=== PATIENT | female | born 1965 | race Caucasian/White ===

== ENCOUNTER → 2017-02-03 | Outpatient (CLI) | payer OTHER ==
[~2017-02-03] MED LIST: ACET-24 PO; ASPEC325 PO; CALC500C70 PO; CLB100 PO; FRRG PO; LISI-729 PO; MELO15TA4 PO; MORP-157 PO; MULT-190 PO; ONDA4TAB65 PO; RXC5 PO; ULT50X PO
== END | disposition home or self-care (01) ==
LOC: C.PAPS 16:13
PROVIDERS: ATTEND Obstetrics & Gynecology
DX: Z12.4 Encounter for screening for malignant neoplasm of cervix (principal); R87.616 Satisfactory cervical smear but lacking transformation zone; N88.0 Leukoplakia of cervix uteri

== ENCOUNTER → 2017-02-14 | Outpatient (CLI) | payer OTHER ==
[2017-02-14 14:46] LABS: ALT/SGPT 21 U/L (12-78); BLOOD UREA NITROGEN 10 mg/dl (7-18); BUN/CREATININE RATIO 11.1 (10-20); CARBON DIOXIDE 29 mmol/L (21-32); CHLORIDE 107 mmol/L (98-107); CHOLESTEROL 176 mg/dl (0-200); CREATININE 0.92 mg/dl (0.60-1.20); GLUCOSE 91 mg/dl (70-99); POTASSIUM 3.9 mmol/L (3.5-5.1); SODIUM 141 mmol/L (136-145); TRIGLYCERIDES 78 mg/dl (0-150); VERY LOW DENSITY LIPOPROT CALC 16 mg/dl
[2017-02-14 14:55] LABS: ALB/GLOB RATIO 1.1 (0.9-2); ALKALINE PHOSPHATASE 48 U/L (45-117); AST/SGOT 14 U/L (15-37); CHOLESTEROL/HDL RATIO 3.3; HDL CHOLESTEROL 53 mg/dl; LDL CHOLESTEROL CALCULATED 107 mg/dl
== END | disposition home or self-care (01) ==
LOC: C.LAB 10:44
PROVIDERS: ATTEND Family Medicine
DX: Z00.00 Encounter for general adult medical examination without abnormal findings (principal); Z13.220 Encounter for screening for lipoid disorders

== ENCOUNTER 2017-04-14 09:55 | Inpatient (IN) | payer OTHER ==
--- NOTE | 2017-03-21 14:01 | PAT Medication Instructions ---
Service Date Mar 21, 2017. Current Home Medication List Calcium/Vitamin D (Os-Tramaine 500 Plus D), 1 TAB PO QAM Celecoxib (Celebrex), 2 CAP PO QAM Lisinopril (Prinivil), 2.5 MG PO QAM Ocuvite Preservision (Ocuvite Preservision), 1 TAB PO QAM Medication Instructions For Your Scheduled Surgery - Check with surgeon for instructions: Celecoxib (Celebrex), 2 CAP PO QAM - Hold the following medications the morning of surgery: Calcium/Vitamin D (Os-Tramaine 500 Plus D), 1 TAB PO QAM Lisinopril (Prinivil), 2.5 MG PO QAM Ocuvite Preservision (Ocuvite Preservision), 1 TAB PO QAM If you have any questions please call us at [phone] or [phone] or [phone]
--- NOTE | 2017-03-21 14:37 | DIAGNOSTIC IMAGING REPORT ---
CHEST PREADMISSION(PA/LAT) CLINICAL HISTORY: 51 years-old Female presenting with preoperative assessment. TECHNIQUE: PA and lateral views of the chest were obtained. COMPARISON: None. FINDINGS: Cardiomediastinal silhouette normal. Lungs and pleural spaces clear. Osseous structures normal. Upper abdomen normal. IMPRESSION: 1. No acute cardiopulmonary disease. Electronically signed by: Gianni Vallejo M.D. 03/21/2017 2:35 PM Dictated Date/Time: 03/21/2017 2:35 PM
[2017-03-21 14:42] LABS: BASO % 0.4 %; BASO ABS # 0.03 K/uL (0-0.2); COMPLETE YES; EOS % 3.6 %; HEMATOCRIT 36.2 % (37-47); IG% 0.1 %; LYMPH % 29.5 %; LYMPH ABS # 2.05 K/uL (1.2-3.4); MEAN CELL VOLUME 90.7 fL (80-100); MEAN CORPUSCULAR HEMOGLOBIN 31.6 pg (25-34); MEAN CORPUSCULAR HGB CONC 34.8 g/dl (32-36); MEAN PLATELET VOLUME 10.9 fL (7.4-10.4); MONO % 9.9 %; NEUT % 56.5 %; PLATELET COUNT 238 K/uL (130-400); RED BLOOD COUNT 3.99 M/uL (4.2-5.4); WHITE BLOOD COUNT 6.95 K/uL (4.8-10.8)
[2017-03-21 15:00] LABS: PARTIAL THROMBOPLASTIN RATIO 1.3; PROTHROMBIN TIME (PATIENT) 10.4 SECONDS (9.0-12.0)
--- NOTE | 2017-04-07 23:17 | HISTORY & PHYSICAL EXAMINATION ---
DATE OF ADMISSION: 04/14/2017 CHIEF COMPLAINT: Bilateral knee pain, right side greater than left. 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 She has a long history of bilateral knee pain and discomfort, right side greater than left. She has been followed by my partner Dr. Rogel for the past 10 years. She was initially treated with injections which helped initially but became less successful over time. Her pain and discomfort has gotten significantly worse over the past 2 years. She describes chronic pain. This is globally in her knee. She cannot go out and walk any significant degree or shop. Walking tolerance is less than half a mile. 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 She would like to consider surgical treatment. PAST MEDICAL HISTORY: 1. Arthritis. 2. Hypertension. PREVIOUS SURGICAL HISTORY: Includes: 1. x2. 2. Breast reduction. 3. Laparoscopy. 4. Sparkill teeth surgery. 5. Tonsillectomy. ALLERGIES: None. CURRENT MEDICINES: 1. Lisinopril 2.5 mg. 2. Celebrex 200 mg a day. SOCIAL HISTORY: A 51-year-old female. She is . She works as an [employer] nurse. Does not smoke. FAMILY HISTORY: Noncontributory. REVIEW OF SYSTEMS: Negative for diabetes, neurologic problems, vascular problems, bleeding disorders. Denies any chest pain, no shortness of breath. No history of DVT or PE. PHYSICAL EXAMINATION: GENERAL: Reveals a healthy, pleasant middle-aged female. She looks to be in excellent health. HEENT: Benign. NECK: Supple. No lymphadenopathy. LUNGS: Clear to auscultation. HEART: Regular rate and rhythm. ABDOMEN: Soft, nontender, nondistended. EXTREMITIES: Grossly neurovascularly intact except as follows: Examination of both knees reveals the patient walks with a waddling gait. She limps markedly on the right leg more so than the left. She has varus alignment to right knee. Moderate size joint effusion. Range of motion 5-120. No instability. No pain with hip motion. X-RAYS: X-rays of both knees show advanced bilateral knee DJD. The right side is a bit worse than left. She has complete loss of her medial joint space. She has subchondral sclerosis. 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 She has failed conservative treatment and would like to have her right knee replaced. PLAN: We will take her to the operating room and do right total knee replacement. The risks and benefits of this procedure were explained to the patient including but not limited to DVT, PE, , infection, neurologic injury, vascular injury, bleeding problems, pain, limited motion, stiffness, failure to relieve her symptoms, incomplete relief of symptoms, need for further surgery in the future, fracture, leg length inequality, nerve palsy, need for revision surgery, etc. The patient understands and desires to proceed. Informed consent was obtained. I did talk to her about her young age, doing this at such an age and may need to be redone or revise in the future. She is fully aware of that. We talked about holding the lisinopril the morning of surgery. I will see her back 2 weeks postop. She is planning on using [facility].
[2017-04-14] VITALS (7 sets, daily range): BP systolic 105–135; BP diastolic 68–86; PULSE 58–68; TEMP 36.4–37; O2SAT 98–100; Ht 165.1 cm; Wt 84.1 kg
[~2017-04-14] VITALS: Ht 165.1 cm; Wt 84.1 kg
[~2017-04-14 09:55] MED LIST changes: -ACET-24 PO; +ACETAMINOPHEN 500 MG TAB PO SCH; -ASPEC325 PO; +BUPIVACAINE 0.25% 30 ML VIAL ONE; +BUPIVACAINE 0.5 % 5 MG/1 ML PF 10ML VIAL ONE; +BUPIVACAINE LIPOSOME 266 MG, BUPIVACAINE/EPINEPHRINE INJ 50 ML, SODIUM CHLORIDE 0.9% PF... INFIL SCH; +CEFAZOLIN 2000 MG/60 ML D5W 60 ML IV SCH; +FAMOTIDINE 20 MG TAB PO SCH; -FRRG PO; +GABAPENTIN 300 MG CAP PO SCH; +LACTATED RINGER'S 1000ML 1,000 ML IV SCH; +LACTATED RINGER'S 1000ML 500 ML IV ONE; +LACTATED RINGER'S 1000ML IV SCH; -MELO15TA4 PO; +METOCLOPRAMIDE HCL 10 MG TAB PO SCH; -MORP-157 PO; -ONDA4TAB65 PO; -RXC5 PO; +SCOPOLAMINE 1.5 MG TDSY TD SCH; +TRANEXAMIC ACID INJ 1,000 MG in SODIUM CHLORIDE 0.9% 100ML 100 ML IV SCH; -ULT50X PO
--- NOTE | 2017-04-14 10:51 | History & Physical Bridge Note ---
H&P Re-Evaluation Bridge Note: I have examined the patient, reviewed the History & Physical and in the interval since the performance of the History & Physical I have noted the following changes of clinical significance: No changes noted
[2017-04-14] MEDS ORDERED: MIDAZOLAM HCL 1 MG/ML 2ML VIAL ONE ×2 (11:28)
[2017-04-14] MEDS ORDERED: EpHEDrine SULFATE INJ 50 MG/ML AMP IV PRN (11:45)
[2017-04-14] MEDS ORDERED: PHENYLEPHRINE 100MCG/ML 5ML SYR IV PRN (11:45)
[2017-04-14] MEDS ORDERED: ONDANSETRON INJ 2 MG/ML 2 ML VIAL IV PRN ×2 (11:45→14:45)
[2017-04-14] MEDS ORDERED: KETOROLAC TROMETHAMINE 30 MG/ML VIAL IV. PRN (11:45)
[2017-04-14] MEDS ORDERED: ATROPINE SULFATE 0.1 MG/ML 5ML SYR IV PRN (11:45)
[2017-04-14] MEDS ORDERED: HYDROmorphone INJ 2 MG/ML SYR/VIAL IV PRN (11:45)
[2017-04-14] MEDS ORDERED: FENTANYL CITRATE INJ 50 MCG/1 ML 2 ML VIAL ONE (11:51)
[2017-04-14] MEDS ORDERED: ONDANSETRON INJ 2 MG/ML 2 ML VIAL ONE (12:26)
[2017-04-14] MEDS ORDERED: PROPOFOL IV EMULSION 10 MG/ML 20 ML VIAL IV ONE (12:26)
[2017-04-14] MEDS ORDERED: LIDOCAINE HCL 2% 2 ML VIAL (20MG/ML) ONE (12:26)
[2017-04-14] MEDS ORDERED: BUPIVACAINE/EPINEPHRINE 0.25% 1:200,000 30 ML VIAL ONE (12:46)
[2017-04-14] MEDS ORDERED: BACITRACIN 50000 UNIT VIAL ONE (12:46)
[2017-04-14] MEDS ORDERED: BUPIVACAINE LIPOSOME 1/3% 266 MG/20 ML VIAL INFIL ONE (12:46)
[2017-04-14] MEDS ORDERED: SODIUM CHLORIDE 0.9% PF 50 ML VIAL ONE (12:46)
[2017-04-14] MEDS ORDERED: EpHEDrine SULFATE INJ 50 MG/ML AMP ONE (13:32)
[2017-04-14] MEDS ORDERED: SODIUM CHLORIDE 0.9% INJ 10 ML VIAL ONE (13:32)
--- NOTE | 2017-04-14 14:35 | [facility] Post Operative Brief Note ---
Immediate Operative Summary Operative Date Apr 14, 2017. Pre-Operative Diagnosis Right knee degenerative joint disease Post-Operative Diagnosis Right knee degenerative joint disease Procedure(s) Performed Right total knee arthroplasty Surgeon Dr. Raymond Mckeon Support Director Surgeon(s) Mark Barnes PA-C Estimated Blood Loss 50 ml Findings Right Knee DJD Fluids (cc crystalloids) 1000 cc Specimens Permanent specimens A: Right knee bone and tissue Drains None Anesthesia Spinal Complication(s) None Disposition Recovery Room / PACU
[2017-04-14] MEDS ORDERED: METOCLOPRAMIDE HCL INJ 5 MG/ML 2 ML VIAL IV PRN (14:45)
[2017-04-14] MEDS ORDERED: SILVER SULFADIAZINE 1% CR 50 GM JAR EXT PRN (14:45)
[2017-04-14] MEDS ORDERED: ZOLPIDEM TARTRATE 5 MG TAB PO PRN (14:45)
[2017-04-14] MEDS ORDERED: BISACODYL 10 MG SUPP PR PRN (14:45)
[2017-04-14] MEDS ORDERED: MoRPHine SULFATE 2 MG/ML CARP IV PRN (14:45)
[2017-04-14] MEDS ORDERED: MAGNESIUM HYDROXIDE SUSP 30 ML UDC PO PRN (14:45)
[2017-04-14] MEDS ORDERED: ALUMINUM/MAGNESIUM/SIMETH (MAALOX MAX) 30 ML UDC PO PRN (14:45)
[2017-04-14] MEDS ORDERED: DiphenhydrAMINE HCL 50 MG/ML VIAL IV PRN (14:45)
--- NOTE | 2017-04-14 15:07 | DIAGNOSTIC IMAGING REPORT ---
RIGHT KNEE 2 VIEWS History: Right total knee arthroplasty. Degenerative arthritis. Postop. FINDINGS: The patient is status post a right total knee arthroplasty. The hardware is intact. No fracture or dislocation. Skin vilma are in place. IMPRESSION: Right total knee arthroplasty. No evidence for hardware complication. Electronically signed by: Santos Ashley M.D. 04/14/2017 3:06 PM Dictated Date/Time: 04/14/2017 3:05 PM
--- NOTE | 2017-04-14 15:14 | Anesthesiology Progress Note ---
Anesthesia Post Op Note Date & Time Apr 14, 2017 at 15:14 Vital Signs Pain Intensity: 0 Vital Signs Past 12 Hours Date Time Temp Pulse Resp B/P (MAP) Pulse Ox O2 Delivery O2 Flow Rate FiO2 04/14/17 15:05 36.5 67 14 120/71 99 Nasal Cannula 2 04/14/17 14:55 58 13 108/70 99 Nasal Cannula 2 04/14/17 14:45 70 16 112/69 99 Nasal Cannula 2 04/14/17 14:39 36.3 81 16 106/82 99 Nasal Cannula 2 04/14/17 10:55 36.9 64 18 132/86 100 Room Air Notes Mental Status: alert / awake / arousable, participated in evaluation Pt Amnestic to Procedure: Yes Nausea / Vomiting: adequately controlled Pain: adequately controlled Airway Patency, RR, SpO2: stable & adequate BP & HR: stable & adequate Hydration State: stable & adequate Anesthetic Complications: no major complications apparent
[2017-04-14] MEDS: CHECK SCOPOLAMINE PATCH PLACEMENT SCH ×2 (16:13→21:38)
[2017-04-14] MEDS: OXYCODONE HCL IR 5 MG TAB (IMMEDIATE RELEASE) PO PRN ×2 (18:02→23:21)
[2017-04-14] MEDS: FERROUS GLUCONATE 324 MG TAB PO SCH (18:03)
[2017-04-14] MEDS: D5W AND 1/2NSS + 20MEQ KCL 1,000 ML IV SCH (18:03)
[2017-04-14 18:09] LABS: CREATININE 0.8 mg/dl (0.60-1.20)
[2017-04-14] MEDS: KETOROLAC TROMETHAMINE 30 MG/ML VIAL IV. SCH (19:16)
[2017-04-14] MEDS ORDERED: TRANEXAMIC ACID INJ 1,000 MG in SODIUM CHLORIDE 0.9% 100ML 100 ML IV SCH (20:00)
[2017-04-14] MEDS: TAPENTADOL ER 50 MG TABCR PO SCH (20:49)
[2017-04-14] MEDS: ASPIRIN 325 MG ECTAB PO SCH (20:49)
[2017-04-14] MEDS: SENNA 8.6 MG TAB PO SCH (20:49)
[2017-04-14] MEDS: DOCUSATE SODIUM 100 MG CAP PO SCH (20:49)
[2017-04-14] MEDS: ACETAMINOPHEN 500 MG TAB PO SCH (21:36)
[2017-04-14] MEDS: CEFAZOLIN IV 2,000 MG in DEXTROSE 5% 50ML 50 ML IV SCH (21:36)
--- NOTE | 2017-04-14 22:59 | OPERATIVE REPORT ---
DATE OF OPERATION: 04/14/2017 SURGEON: Raymond Mckeon MD. TIMEKEEPER: BANDAR Cody. PREOPERATIVE DIAGNOSIS: Right knee degenerative joint disease. POSTOPERATIVE DIAGNOSIS: Same. PROCEDURE PERFORMED: Right cemented posterior stabilized total knee arthroplasty. COMPLICATION: None. ESTIMATED BLOOD LOSS: 50 mL FLUID REPLACEMENT: 1000 mL crystalloid fluid replacement. ANESTHESIA: Spinal with adductor canal block. DRAINS: None. SPECIMEN: Right knee sent for pathology. TOURNIQUET TIME: 52 minutes at 300 mmHg. 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 She has got about a 10-year history of bilateral knee pain and discomfort, right side a bit worse than left. She has been through extensive conservative treatment without adequate relief. She elected to proceed with total knee arthroplasty. OPERATIVE FINDINGS: Operative findings revealed advanced right knee DJD. She had grade 4 [id number] disease in the medial femoral condyle and medial tibial plateau with pretty significant eburnation of both. She had a fixed varus deformity to her knee. Slight flexion contracture. Her lateral and patellofemoral compartments were pretty well preserved. OPERATIVE IMPLANTS: Operative implants consisted of: 1. Biomet Vanguard size 65 right posterior stabilized femoral component. 2. Biomet size 67 tibial tray. 3. A 10 mm posterior stabilized polyethylene insert. 4. A 28 x 8 all poly patella. OPERATIVE PROCEDURE: The patient taken to the operating room, identified and placed on the operative table in supine position. All contact areas were appropriately padded. IV antibiotics were provided by anesthesia team. Spinal anesthetic and adductor canal block had been provided in the holding area. Cruz catheter was placed in sterile fashion. A right thigh tourniquet was then placed and the right lower extremity was then prepped and draped in the usual sterile fashion. The right leg was elevated and exsanguinated with Esmarch and tourniquet was placed at 300 mmHg. An anterior approach to the right knee was then performed through a longitudinal incision centered over the patella. Sharp dissection was carried out through the subcutaneous tissues down to the level of the extensor mechanism. A medial parapatellar arthrotomy incision was made. Some subperiosteal dissection was carried out medially. The fat pad was resected from beneath the patellar tendon. The lateral patellofemoral ligament was released. The patella was everted and the knee was flexed. The osteophytes were taken off the distal femur. The ACL and PCL were then released from the distal femur and the tibia subluxated anteriorly. The external tibial alignment jig was then placed in the anterior face of the tibia and adjusted 14 mm medially. Proximal tibial cut was made to remove about 2 mm of bone from most deficient aspect of the medial tibial plateau. Tibia was then sized to a 67. Some osteophytes were taken off medial and posteromedially. Attention was then drawn to the femur. The distal femur was entered with a sharp drill, followed by the IM yue. A right 5-degree valgus cutting guide was then placed and the distal femoral cutting block was pinned in place. Distal femoral cut was made to take an additional 3 mm of bone. The femur was then sized to a size 65. We downsized this just slightly. The AP cutting block was pinned parallel to the epicondylar axis which was 3 degrees of external rotation. The anterior cut, anterior chamfer, posterior cut and posterior chamfer cuts were made. Box cutting guide was placed and adjusted slightly lateral and the box cut was made. The knee was flexed. The remnants of the medial and lateral menisci were excised. The osteophytes were taken off the posterior aspect of the femur. Trial femoral component was placed. Tibial tray was pinned in maximum external rotation, and drill and stem punch were used to create defect in proximal tibia for the tibial tray. The knee was then trialed and the 10 mm insert fit most appropriately. Attention was then drawn to the patella. The patella was cleaned off all soft tissues. Patella thickness measured 18 mm and cut down to 12. It was sized to a size 28 patella. Lug holes were drilled for 28 patella. Lateral osteophytes removed. Patella button was placed. Knee was taken through range of motion and the patella tracked nicely with no thumbs test. Attention was then drawn toward placement of permanent components. All trial components were removed. A bone plug was placed in the distal femur to limit blood loss. A double batch of Palacos G cement was mixed. A right size 65 posterior stabilized femoral component, a size 67 tibial tray, a 10 mm posterior stabilized polyethylene insert, and a 28 x 8 all poly patella were then cemented in place. The knee was brought out into full extension until cement hardened. A final cement check was then performed. Pericapsular tissues were injected with a total of 100 mL of a combination of 20 mL of Exparel, 30 mL of normal saline, 50 mL of 0.25% Marcaine with epinephrine. The patient did receive 1 gram of tranexamic acid. The tourniquet was then let down for a final tourniquet time of 52 minutes. Hemostasis was assured with use of electrocautery. The wound was irrigated extensively. The extensor mechanism was then closed with a combination of #1 PDS suture and #1 Vicryl suture in a [id number] fashion. Extensor mechanism was checked and found to be intact. The subcutaneous tissues were then closed with 2-0 Dexon suture in a buried interrupted fashion. Skin was closed with skin vilma. Leg was then cleaned and dried, and a sterile dressing of Xeroform, 4 x 4's, sterile cast padding and Franklin bandage was applied. The patient was then transferred to the recovery room in stable condition. The patient tolerated the procedure well with no complications. All needle and sponge counts were correct at the end of the operation. I attest to the content of the Intraoperative Record and any orders documented therein. Any exceptions are noted below. FREDYD
[2017-04-15] MEDS: D5W AND 1/2NSS + 20MEQ KCL 1,000 ML IV SCH ×2 (02:10→12:32)
[2017-04-15] MEDS: KETOROLAC TROMETHAMINE 30 MG/ML VIAL IV. SCH ×4 (02:10→21:05)
[2017-04-15 02:59] VITALS: BP 99/62; PULSE 76; TEMP 36.9; O2SAT 97
[2017-04-15] MEDS: ACETAMINOPHEN 500 MG TAB PO SCH ×3 (05:34→21:05)
[2017-04-15] MEDS: CEFAZOLIN IV 2,000 MG in DEXTROSE 5% 50ML 50 ML IV SCH (05:34)
[2017-04-15] MEDS: OXYCODONE HCL IR 5 MG TAB (IMMEDIATE RELEASE) PO PRN (05:35)
[2017-04-15 07:12] LABS: HEMATOCRIT 30.9 % (37-47); MEAN CELL VOLUME 90.4 fL (80-100); MEAN CORPUSCULAR HGB CONC 34.3 g/dl (32-36); MEAN PLATELET VOLUME 10.6 fL (7.4-10.4); PLATELET COUNT 194 K/uL (130-400); RED BLOOD COUNT 3.42 M/uL (4.2-5.4)
[2017-04-15 07:29] VITALS: BP 101/67; PULSE 66; TEMP 36.9; O2SAT 99
[2017-04-15] MEDS: CHECK SCOPOLAMINE PATCH PLACEMENT SCH ×2 (07:32→16:19)
[2017-04-15 07:46] LABS: CREATININE 0.85 mg/dl (0.60-1.20)
[2017-04-15 07:47] LABS: BUN/CREATININE RATIO 10.8 (10-20); CALCIUM 8.3 mg/dl (8.5-10.1)
--- NOTE | 2017-04-15 08:39 | PROGRESS NOTE ---
DATE: 04/15/2017 SUBJECTIVE: A 51-year-old female postop day #1 from right knee replacement. She is doing pretty well. Pain has been manageable. No chest pain or shortness of breath. Not feeling dizzy or lightheaded. OBJECTIVE: VITAL SIGNS: Temperature is 36.9. Vital signs stable. GENERAL: Physical examination reveals a pleasant, middle-aged female. She is sitting up in bed and looks pretty comfortable. EXTREMITIES: Examination of the right leg reveals the leg to be well aligned. She can dorsiflex and plantarflex her foot appropriately. She is neurologically intact. Dressing is clean, dry and intact. LABORATORY DATA: Hemoglobin 10.6. Hematocrit 30.9. Electrolytes are stable. ASSESSMENT: A 51-year-old female postop day #1 from right knee replacement, doing pretty well. Pain is controlled. She is neurologically intact. PLAN: 1. DVT prophylaxis including thigh-high TEDs, SCDs, and aspirin twice a day. 2. PT/OT. Weightbear as tolerated. Right total knee protocol. 3. Pain control, doing well with current pain regimen. 4. Disposition: She is hoping to be discharged to home likely with some home health once adequately recovered.
[2017-04-15] MEDS: CEROVITE ADV FORMULA TAB PO SCH (09:00)
[2017-04-15] MEDS: CALCIUM 600MG + VIT D 400 IU TAB PO SCH (09:00)
[2017-04-15] MEDS: MULTIVITAMIN TAB PO SCH (09:00)
[2017-04-15] MEDS: TAPENTADOL ER 50 MG TABCR PO SCH ×2 (09:24→21:13)
[2017-04-15] MEDS: DOCUSATE SODIUM 100 MG CAP PO SCH ×2 (09:24→21:05)
[2017-04-15] MEDS: FERROUS GLUCONATE 324 MG TAB PO SCH ×3 (09:24→21:05)
[2017-04-15] MEDS: ASPIRIN 325 MG ECTAB PO SCH ×2 (09:25→21:05)
[2017-04-15] MEDS: PANTOprazole SOD 40 MG TAB PO SCH (09:25)
[2017-04-15] MEDS: LISINOPRIL 5 MG TAB PO SCH (09:25)
[2017-04-15 10:55] VITALS: BP 111/70; PULSE 70; TEMP 36.5; O2SAT 99
[2017-04-15 11:51] VITALS: BP 100/64; PULSE 67; O2SAT 94
[2017-04-15] MEDS ORDERED: NURSING VERBAL MED ORDER ONE (12:15)
[2017-04-15] MEDS ORDERED: ACET-24 PO (15:20)
[2017-04-15] MEDS ORDERED: RXC5 PO (15:20)
[2017-04-15] MEDS ORDERED: FRRG PO (15:20)
[2017-04-15] MEDS ORDERED: MORP-157 PO (15:20)
[2017-04-15] MEDS ORDERED: ASPEC325 PO (15:20)
[2017-04-15] MEDS ORDERED: ONDA4TAB65 PO (15:20)
--- NOTE | 2017-04-15 15:23 | Discharge Instructions ---
Discharge Instructions Date of Service Apr 15, 2017. Admission Reason for Admission: Right Knee Degenerative Joint Disease Discharge Discharge Diagnosis / Problem: Right Knee Replacement Discharge Goals Goal(s): Decrease discomfort, Improve function, Increase independence, Improve disease control, Therapeutic intervention Activity Recommendations Activity Limitations: per Instructions/Follow-up section Weightbearing Status: Right weightbearing . Instructions / Follow-Up Instructions / Follow-Up ACTIVITY RECOMMENDATIONS: Physical Therapy: * You will go to physical therapy three times each week for four to six weeks after your surgery in order to regain your knee range of motion and to retrain your knee to work properly. * It is just as important to make sure you are getting your knee perfectly straight as it is to regain your knee bend. * Taking a pain pill an hour before therapy can help you have a more productive and comfortable therapy session. Home Exercise: * You were shown a series of exercises (heel props, heel slides, etc.) in the hospital. Do these exercises three to four times each day including the exercises you were shown in physical therapy. Walking: * Get up and walk several times each day. For the first four weeks, try not to stand or walk for more than one hour at a time. If you do stand or walk for more than one hour, you will not hurt anything, but your knee and leg will likely swell. * As you feel comfortable, you may change from the walker or crutches to a cane and then to independent walking. MEDICATIONS: New Medicine: * You will likely be taking one or more of these medications: 1. MS Contin - A long-acting pain medication. Take 1 tablet twice a day for the first ten days to decrease your baseline level of pain. 2. Oxycodone - A quick and shorter-acting pain medication. Take one to two tablets every four to six hours to lessen your pain. 3. Iron Sulfate - Take three times each day for the month after surgery to help you replace the blood lost during surgery. 4. Aspirin - Thins your blood to lessen the chance of forming a blood clot. * The most common side effects of pain medicine and iron are nausea and constipation. If nausea or constipation is too much of a problem or if you have any questions about your new medicines or doses, call [facility] at [phone]. We will try to help you manage these issues. VERY IMPORTANT TO READ AND REVIEW" Pain: * The immediate post-operative period after knee replacement surgery is often quite painful. * You are given a prescription for pain medicine. You should take it, as directed, when you need it, especially before physical therapy and before going to bed. Pain that interferes with sleep is very common and can last several months. * You will likely need pain medicine for the first four to six weeks. It will not stop all of the pain. The pain will lessen and as you feel better, you may change to milder pain medicine such as Tylenol. * The most common side effects of pain medicine are nausea and constipation, so don't take more than you need. SPECIAL CARE INSTRUCTIONS: TEDs/Elastic Stockings: * The white elastic stockings help limit swelling and prevent blood clots from forming in your legs. The more you wear them, the more they work. * Wear them for six weeks after knee replacement surgery and four weeks after partial knee replacement. Prevention of Infection: * Take antibiotics one hour before any dental cleaning, dental work, urological procedure, gastrointestinal procedure or any invasive surgery in order to prevent your new joint from getting infected. * You may get the antibiotics from the doctor performing the procedure or you may call our office at before and we will call in a prescription to the pharmacy of your choice. Things to Watch For: * Drainage from the incision site that occurs more than one week after your surgery. * Severely increased knee/leg pain or swelling. * Increased redness at the incision site. * Fever above 102 degrees Fahrenheit. * Unusual chest pain or shortness of breath. * Unusual pain or burning with urination. Call [facility] at with any of the above problems or if you have any questions about your medicines or recovery. FOLLOW UP VISIT: Make an appointment to see your doctor for approximately two weeks after surgery for a progress check and staple removal by calling the office at . Current Hospital Diet Patient's current hospital diet: Regular Diet Discharge Diet Recommended Diet: Regular Diet Procedures Procedures Performed: Right total knee arthroplasty Pending Studies Studies pending at discharge: no Laboratory Results Lipid Panel Test 02/14/17 10:54 Range/Units Triglycerides Level 78 0-150 mg/dl Cholesterol Level 176 0-200 mg/dl HDL Cholesterol 53 mg/dl Cholesterol/HDL Ratio 3.3 LDL Cholesterol, Calculated 107 mg/dl Medical Emergencies . Who to Call and When: Medical Emergencies: If at any time you feel your situation is an emergency, please call 911 immediately. . Non-Emergent Contact Non-Emergency issues call your: Surgeon . "Provider Documentation" section prepared by Raymond Mckeon. . VTE Core Measure Inpt VTE Proph given/why not?: Other Anticoagulation, T.E.D. Stockings, SCD's
[2017-04-15 15:53] VITALS: BP 94/56; PULSE 71; TEMP 37.3; O2SAT 97
[2017-04-15] MEDS: SENNA 8.6 MG TAB PO SCH (21:05)
[2017-04-15 23:38] VITALS: BP 109/61; PULSE 78; TEMP 37.2; O2SAT 98
[2017-04-16] MEDS: CHECK SCOPOLAMINE PATCH PLACEMENT SCH ×2 (00:17→08:07)
[2017-04-16] MEDS: KETOROLAC TROMETHAMINE 30 MG/ML VIAL IV. SCH ×2 (02:00→08:00)
[2017-04-16] MEDS: ACETAMINOPHEN 500 MG TAB PO SCH (05:34)
[2017-04-16 05:45] VITALS: BP 98/62; PULSE 74; TEMP 37; O2SAT 98
[2017-04-16] MEDS: TRAMADOL HCL 50 MG TAB PO PRN ×2 (05:57→11:03)
[2017-04-16] MEDS ORDERED: ULT50X PO (07:53)
[2017-04-16] MEDS: FERROUS GLUCONATE 324 MG TAB PO SCH (07:59)
[2017-04-16] MEDS: DOCUSATE SODIUM 100 MG CAP PO SCH (07:59)
[2017-04-16 08:00] VITALS: BP 103/68; PULSE 74
[2017-04-16] MEDS: MULTIVITAMIN TAB PO SCH (08:00)
[2017-04-16] MEDS: PANTOprazole SOD 40 MG TAB PO SCH (08:00)
[2017-04-16] MEDS: CEROVITE ADV FORMULA TAB PO SCH (08:00)
[2017-04-16] MEDS: ASPIRIN 325 MG ECTAB PO SCH (08:01)
[2017-04-16] MEDS: LISINOPRIL 5 MG TAB PO SCH (08:01)
[2017-04-16] MEDS: CALCIUM 600MG + VIT D 400 IU TAB PO SCH (08:01)
[2017-04-16] MEDS: TAPENTADOL ER 50 MG TABCR PO SCH (08:07)
--- NOTE | 2017-04-16 08:25 | PROGRESS NOTE ---
DATE: 04/16/2017 SUBJECTIVE: A 51-year-old female postop day #2 from a right knee in place. Doing better today. Nauseated yesterday, but seems to be significantly improved. She backed off from some of the pain meds. No chest pain or shortness of breath. Not feeling dizzy or lightheaded. OBJECTIVE: VITAL SIGNS: Temperature 37.0. Vital signs stable. GENERAL: Physical examination reveals a pleasant, middle-aged female. She is sitting up in her bedside chair and looks comfortable. EXTREMITIES: Examination of the right leg reveals the dressing to be clean, dry and intact. She had a little bit of bloody drainage. She is neurologically intact. ASSESSMENT: A 51-year-old female postop day #2 from a right knee replacement, doing pretty well. Bit nauseated yesterday, but better today. Pain is controlled. PLAN: 1. DVT prophylaxis including thigh-high TEDs, SCDs, and aspirin twice a day. 2. PT/OT. Weightbear as tolerated. Right total knee protocol. 3. Pain control, doing pretty well with current pain regimen. 4. Nausea seems to be improved. We will write her for some Zofran as needed. 5. Anemia. Currently, asymptomatic. 6. Disposition: Plan to discharge to home with some home health later today.
[2017-04-16 10:45] VITALS: BP 103/68; PULSE 74; TEMP 37; O2SAT 98
== END 2017-04-16 12:04 | disposition home health service (06) | DRG 470 ==
LOC: C.ACU 09:55 → C.3E 10:50 → ENRESERV 15:34
PROVIDERS: ADMIT Orthopaedic Surgery Sports Medicine; ATTEND Orthopaedic Surgery Sports Medicine
PROC: 0SRC0J9 Replacement of Right Knee Joint with Synthetic Substitute, Cemented, Open Approach (ICD-10-PCS; principal; 2017-04-14 12:30)
DX: M17.0 Bilateral primary osteoarthritis of knee (principal); I10 Essential (primary) hypertension; Z79.899 Other long term (current) drug therapy

== ENCOUNTER → 2017-05-17 | Outpatient (CLI) | payer OTHER ==
[~2017-05-17] MED LIST changes: +ACET-24 PO; -ACETAMINOPHEN 500 MG TAB PO SCH; +ASPEC325 PO; -BUPIVACAINE 0.25% 30 ML VIAL ONE; -BUPIVACAINE 0.5 % 5 MG/1 ML PF 10ML VIAL ONE; -BUPIVACAINE LIPOSOME 266 MG, BUPIVACAINE/EPINEPHRINE INJ 50 ML, SODIUM CHLORIDE 0.9% PF... INFIL SCH; -CEFAZOLIN 2000 MG/60 ML D5W 60 ML IV SCH; -FAMOTIDINE 20 MG TAB PO SCH; +FRRG PO; -GABAPENTIN 300 MG CAP PO SCH; -LACTATED RINGER'S 1000ML 1,000 ML IV SCH; -LACTATED RINGER'S 1000ML 500 ML IV ONE; -LACTATED RINGER'S 1000ML IV SCH; -METOCLOPRAMIDE HCL 10 MG TAB PO SCH; +RXC5 PO; -SCOPOLAMINE 1.5 MG TDSY TD SCH; -TRANEXAMIC ACID INJ 1,000 MG in SODIUM CHLORIDE 0.9% 100ML 100 ML IV SCH; +ULT50X PO
--- NOTE | 2017-05-18 07:50 | MAMMOGRAPHY REPORT ---
BILATERAL DIGITAL SCREENING MAMMOGRAM TOMOSYNTHESIS WITH CAD: 05/17/2017 CLINICAL HISTORY: Routine screening. Patient has no complaints. TECHNIQUE: Breast tomosynthesis in addition to standard 2D mammography was performed. Current study was also evaluated with a Computer Aided Detection (CAD) system. COMPARISON: Comparison is made to exams dated: 05/16/2016 mammogram, 05/13/2015 mammogram, 05/06/2014 mammogram, 04/15/2013 mammogram, 04/02/2012 mammogram, and 04/01/2011 mammogram - [facility]. BREAST COMPOSITION: The tissue of both breasts is heterogeneously dense, which may obscure small mas ses. FINDINGS: There is evidence of prior reduction mammoplasty with stable benign calcifications scatter ed bilaterally. No new suspicious mass, architectural distortion or cluster of microcalcifications i s seen. IMPRESSION: ACR BI-RADS CATEGORY 1: NEGATIVE There is no mammographic evidence of malignancy. A 1 year screening mammogram is recommended. The pa tient will receive written notification of the results. Approximately 10% of breast cancers are not detected with mammography. A negative mammographic report should not delay biopsy if a clinically suggestive mass is present. Julita Cervantes M.D. ay/:05/17/2017 16:24:10 Lawyer Probate: Elza CERDA(Juan)(Gela)([place]), [facility] letter sent: Normal 1/2 BI-RADS Code: ACR BI-RADS Category 1: Negative
== END | disposition home or self-care (01) ==
LOC: C.MAMM 15:19
PROVIDERS: ATTEND Obstetrics & Gynecology
DX: Z12.31 Encounter for screening mammogram for malignant neoplasm of breast (principal)

== ENCOUNTER → 2017-09-16 | Outpatient (CLI) | payer OTHER ==
[2017-09-16 09:44] LABS: BASO % 0.3 %; BASO ABS # 0.02 K/uL (0-0.2); EOS % 3.7 %; EOS ABS # 0.29 K/uL (0-0.5); HEMATOCRIT 36.7 % (37-47); HEMOGLOBIN 12.6 g/dL (12.0-16.0); IG# 0.01 K/uL (0.00-0.02); LYMPH % 23.4 %; LYMPH ABS # 1.86 K/uL (1.2-3.4); MEAN CELL VOLUME 91.5 fL (80-100); MEAN CORPUSCULAR HEMOGLOBIN 31.4 pg (25-34); MEAN CORPUSCULAR HGB CONC 34.3 g/dl (32-36); MEAN PLATELET VOLUME 10.7 fL (7.4-10.4); MONO % 10.3 %; MONO ABS # 0.82 K/uL (0.11-0.59); NEUT % 62.2 %; NEUT ABS # 4.94 K/uL (1.4-6.5); PLATELET COUNT 222 K/uL (130-400); RED CELL DISTRIBUTION WIDTH CV 12.9 % (11.5-14.5); WHITE BLOOD COUNT 7.94 K/uL (4.8-10.8)
[2017-09-16 10:00] LABS: PTT PATIENT 31.4 SECONDS (21.0-31.0)
[2017-09-16 10:09] LABS: BLOOD UREA NITROGEN 12 mg/dl (7-18); CREATININE 0.75 mg/dl (0.60-1.20); GLUCOSE 85 mg/dl (70-99)
[2017-09-16 10:10] LABS: CALCIUM 8.7 mg/dl (8.5-10.1); CARBON DIOXIDE 28 mmol/L (21-32); SODIUM 141 mmol/L (136-145)
== END | disposition home or self-care (01) ==
LOC: C.LAB 08:50
PROVIDERS: ATTEND Orthopaedic Surgery Sports Medicine
DX: Z01.818 Encounter for other preprocedural examination (principal)

== ENCOUNTER 2017-10-03 06:33 | Inpatient (IN) | payer OTHER ==
--- NOTE | 2017-09-30 08:53 | HISTORY & PHYSICAL EXAMINATION ---
DATE OF ADMISSION: 10/03/2017 CHIEF COMPLAINT: Left knee pain. 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 She is now about 6 months out from a right knee replacement and has done quite well from this. A little ache and pain intermittently, but in general, very happy. She has had a long history of knee problems followed and treated by my partner Dr. Rogel over the past 10 years. Conservative care has become less successful. She is happy with the right knee. She continues to be bothered by left knee. It is affecting her ability to do work. She cannot walk any long distance. She would like to have her left knee fixed. PAST MEDICAL HISTORY: Significant for: 1. Arthritis. 2. Hypertension. PAST SURGICAL HISTORY: 1. [place] teeth extraction. 2. x2. 3. Breast reduction. 4. Laparoscopy: 5. Tonsillectomy. 6. Right knee replacement done on 04/14/2017. ALLERGIES: None. CURRENT MEDICATIONS: Lisinopril 2.5 mg a day. SOCIAL HISTORY: A 51-year-old female. 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 She is . Does not smoke. FAMILY HISTORY: Noncontributory. REVIEW OF SYSTEMS: Negative for diabetes, neurologic problems, vascular problems with bleeding disorders. No chest pain or shortness of breath. No signs of DVT or PE. PHYSICAL EXAMINATION: GENERAL: Reveals a healthy, pleasant middle-aged female, looks to be in excellent health. HEENT: Benign. NECK: Supple. No lymphadenopathy. LUNGS: Clear to auscultation. HEART: Regular rate and rhythm. ABDOMEN: Soft, nontender, nondistended. EXTREMITIES: Grossly neurovascularly intact except as follows: Examination of the left knee reveals a moderate soft tissue envelope. Slight varus alignment. Small knee effusion. She is tender over the medial joint line. Range of motion 0-120. No instability. Examination of the right knee reveals a well-healed incision. Minimal swelling. Range of motion 0-125. X-RAYS: X-rays of the left knee reviewed. Shows advanced medial compartment arthritis. She has near complete loss of her medial joint space. She has osteophytes of the medial femoral condyle and medial tibial plateau. 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 She failed conservative treatment, would like to have her left knee replaced. PLAN: We will take her to the operating room and do a left total knee replacement. The risks and benefits of this procedure were explained to the patient include but not limited to DVT, PE, , infection, neurological injury, vascular injury, bleeding problem, pain, limited range of motion, stiffness, failure to relieve her symptoms, incomplete relief of symptoms, need for further surgery in the future, need for revision surgery, etc. The patient understands and desires to proceed. Informed consent was obtained. She did have some problems with nausea postop. We will make sure we use a scopolamine patch and maybe give her a little bit of steroid as well. We will try and limit strong narcotics postop. She is planning to be discharged to home using [facility] home health program.
[~2017-10-03] VITALS: Ht 165.1 cm; Wt 84.1 kg
[2017-10-03] VITALS (8 sets, daily range): BP systolic 100–128; BP diastolic 62–85; PULSE 59–72; TEMP 36.4–36.8; O2SAT 96–100; Ht 165.1 cm; Wt 84.1 kg
[~2017-10-03 06:33] MED LIST changes: -ACET-24 PO; +ACETAMINOPHEN 500 MG TAB PO SCH; -ASPEC325 PO; +BUPIVACAINE LIPOSOME 266 MG, BUPIVACAINE/EPINEPHRINE INJ 50 ML, SODIUM CHLORIDE 0.9% PF... INFIL SCH; +CEFAZOLIN 2000MG IV PUSH 15 ML IV SCH; -CLB100 PO; +FAMOTIDINE 20 MG TAB PO SCH; -FRRG PO; +GABAPENTIN 900 MG PO SCH; +LACTATED RINGER'S 1000ML 1,000 ML IV SCH; +LACTATED RINGER'S 1000ML 500 ML IV SCH; +LACTATED RINGER'S 1000ML IV SCH; +METOCLOPRAMIDE HCL 10 MG TAB PO SCH; -RXC5 PO; +SCOPOLAMINE 1.5 MG TDSY TD SCH; +TRANEXAMIC ACID INJ 1,000 MG x 1 Bag Intra-Op IV SCH; -ULT50X PO
[2017-10-03] MEDS ORDERED: BUPIVACAINE 0.5 % 5 MG/1 ML PF 10ML VIAL ONE (06:37)
[2017-10-03] MEDS ORDERED: ROPIVACAINE 0.5% 5 MG/ML 30 ML VIAL ONE (06:37)
[2017-10-03] MEDS ORDERED: LIDOCAINE HCL 2% 2 ML VIAL (20MG/ML) ONE (07:44)
[2017-10-03] MEDS ORDERED: PROPOFOL IV EMULSION 10 MG/ML 20 ML VIAL IV ONE (07:44)
[2017-10-03] MEDS ORDERED: FENTANYL CITRATE INJ 50 MCG/1 ML 2 ML VIAL ONE (07:45)
[2017-10-03] MEDS ORDERED: MIDAZOLAM HCL 1 MG/ML 2ML VIAL ONE ×2 (07:45→08:27)
[2017-10-03] MEDS ORDERED: SODIUM CHLORIDE 0.9% PF 50 ML VIAL ONE (08:39)
[2017-10-03] MEDS ORDERED: BACITRACIN 50000 UNIT VIAL ONE (08:39)
[2017-10-03] MEDS ORDERED: BUPIVACAINE LIPOSOME 1/3% 266 MG/20 ML VIAL INFIL ONE (08:39)
[2017-10-03] MEDS ORDERED: BUPIVACAINE 0.25% 30 ML VIAL ONE ×2 (08:40)
[2017-10-03] MEDS ORDERED: EpINEphrine INJ 1MG/ML AMP 1 MG/ML AMP ONE (08:40)
[2017-10-03] MEDS ORDERED: FENTANYL CITRATE INJ 50 MCG/1 ML 2 ML VIAL IV PRN (09:15)
[2017-10-03] MEDS ORDERED: EpHEDrine SULFATE INJ 50 MG/ML AMP IV PRN (09:15)
[2017-10-03] MEDS ORDERED: ONDANSETRON INJ 2 MG/ML 2 ML VIAL IV PRN ×2 (09:15→10:45)
[2017-10-03] MEDS ORDERED: ATROPINE SULFATE 0.1 MG/ML 5ML SYR IV PRN (09:15)
[2017-10-03] MEDS ORDERED: ONDANSETRON INJ 2 MG/ML 2 ML VIAL ONE (09:21)
[2017-10-03] MEDS ORDERED: DEXAMETHASONE SOD INJ 4 MG/ML VIAL ONE (09:21)
[2017-10-03] MEDS ORDERED: EpHEDrine SULFATE 50MG/5ML SYR ONE (09:21)
--- NOTE | 2017-10-03 10:31 | [facility] Post Operative Brief Note ---
Immediate Operative Summary Operative Date Oct 03, 2017. Pre-Operative Diagnosis Advanced Left Knee Degenerative Joint Disease Post-Operative Diagnosis Advanced Left Knee Degenerative Joint Disease Procedure(s) Performed Left Total Knee Arthroplasty Cemented Surgeon Dr Raymond Mckeon Area Manager Surgeon(s) Mark Barnes PA-C Estimated Blood Loss 50cc Findings Consistent with Post-Op Diagnosis Fluids (cc crystalloids) 1100 cc Specimens As Per Surgeon A. Left Knee Bone and tissue Drains None Anesthesia Type MAC Spinal Regional Complication(s) none Disposition Accompanied Pt To Recover: no Disposition: Recovery Room / PACU
[2017-10-03] MEDS ORDERED: METOCLOPRAMIDE HCL INJ 5 MG/ML 2 ML VIAL IV PRN (10:45)
[2017-10-03] MEDS ORDERED: SILVER SULFADIAZINE 1% CR 50 GM JAR EXT PRN (10:45)
[2017-10-03] MEDS ORDERED: DiphenhydrAMINE HCL 50 MG/ML VIAL IV PRN (10:45)
[2017-10-03] MEDS ORDERED: MAGNESIUM HYDROXIDE SUSP 30 ML UDC PO PRN (10:45)
[2017-10-03] MEDS ORDERED: ZOLPIDEM TARTRATE 5 MG TAB PO PRN (10:45)
[2017-10-03] MEDS ORDERED: ALUMINUM/MAGNESIUM/SIMETH (MAALOX MAX) 30 ML UDC PO PRN (10:45)
[2017-10-03] MEDS ORDERED: BISACODYL 10 MG SUPP PR PRN (10:45)
[2017-10-03] MEDS ORDERED: HYDROmorphone INJ 0.5 MG/0.5 ML SYR IV PRN (10:45)
--- NOTE | 2017-10-03 11:18 | DIAGNOSTIC IMAGING REPORT ---
L KNEE 1 OR 2 VIEWS ROUTINE CLINICAL HISTORY: Left knee degenerative joint disease. Arthroplasty. COMPARISON: Left knee radiograph September 14, 2017. FINDINGS: Alignment of the total left knee arthroplasty is anatomic. There is no fracture or unexpected radiopaque foreign body. Skin vilma are present. IMPRESSION: Expected findings following total left knee arthroplasty. Electronically signed by: Ambrosio Weller M.D. 10/03/2017 11:17 AM Dictated Date/Time: 10/03/2017 11:16 AM
--- NOTE | 2017-10-03 11:38 | Anesthesiology Progress Note ---
Anesthesia Post Op Note Date & Time Oct 03, 2017 at 11:37 Vital Signs Pain Intensity: 0 Vital Signs Past 12 Hours Date Time Temp Pulse Resp B/P (MAP) Pulse Ox O2 Delivery O2 Flow Rate FiO2 10/03/17 11:21 57 14 105/62 99 10/03/17 11:21 57 14 10/03/17 11:17 95/58 10/03/17 11:16 56 12 99 10/03/17 11:16 56 12 10/03/17 11:14 36.4 56 16 106/63 100 Nasal Cannula 2 10/03/17 11:11 65 12 10/03/17 11:11 61 12 109/63 99 10/03/17 11:07 102/59 10/03/17 11:06 62 18 99 10/03/17 11:06 58 18 10/03/17 11:02 109/75 10/03/17 11:01 59 14 99 10/03/17 11:01 59 14 10/03/17 10:57 104/64 10/03/17 10:56 61 14 10/03/17 10:56 57 14 98 10/03/17 10:52 117/70 10/03/17 10:51 54 14 99 10/03/17 10:51 57 14 10/03/17 10:50 63 10 10/03/17 10:50 62 10 98 10/03/17 10:46 113/63 10/03/17 10:45 51 12 10/03/17 10:45 53 12 99 10/03/17 10:42 108/57 10/03/17 10:40 54 12 10/03/17 10:40 53 12 98 10/03/17 10:37 102/65 10/03/17 10:35 71 11 10/03/17 10:35 36.4 76 16 102/65 (66) 99 Nasal Cannula 2 10/03/17 10:35 77 11 97 10/03/17 06:59 36.6 72 18 128/85 100 Room Air Notes Mental Status: alert / awake / arousable, participated in evaluation Pt Amnestic to Procedure: Yes Nausea / Vomiting: adequately controlled Pain: adequately controlled Airway Patency, RR, SpO2: stable & adequate BP & HR: stable & adequate Hydration State: stable & adequate Neuraxial Anesthesia: was administered, sensory block is resolving Anesthetic Complications: no major complications apparent
[2017-10-03] MEDS: D5W AND 1/2NSS + 20MEQ KCL 1,000 ML IV SCH ×2 (12:05→21:41)
[2017-10-03] MEDS: KETOROLAC TROMETHAMINE 30 MG/ML VIAL IV. SCH ×3 (12:05→23:47)
[2017-10-03] MEDS: FERROUS GLUCONATE 324 MG TAB PO SCH ×2 (12:30→17:40)
--- NOTE | 2017-10-03 14:08 | OPERATIVE REPORT ---
DATE OF OPERATION: 10/03/2017 SURGEON: Raymond Mckeon MD ATTENDANCE OFFICER: BANDAR Cody PREOPERATIVE DIAGNOSIS: Left knee degenerative joint disease. POSTOPERATIVE DIAGNOSIS: Same. PROCEDURE PERFORMED: Left cemented posterior stabilized total knee arthroplasty. COMPLICATIONS: None. ESTIMATED BLOOD LOSS: 50 mL. FLUID REPLACEMENT: 1100 mL crystalloid fluid replacement. ANESTHESIA: Spinal with adductor canal block. DRAINS: None. SPECIMENS: Left knee sent for pathology. 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 She has been through extensive conservative treatment provided by my partner. This became less successful over time. She underwent a right knee replacement, done well from that and would like to have her left knee replaced. OPERATIVE FINDINGS: Operative findings revealed advanced left knee DJD. She had pretty extensive grade 4 changes in the medial femoral condyle and medial tibial plateau and spotty grade 4 changes of the patellofemoral joint. The lateral compartment was pretty well spared. She had a moderate size joint effusion. OPERATIVE IMPLANTS: Operative implants consisted of: 1. Biomet Vanguard size 62.5 left posterior stabilized femoral component. 2. Biomet size 67 tibial tray. 3. A 10-mm posterior stabilized polyethylene insert. 4. A 28 x 8 all poly patella. OPERATIVE PROCEDURE: The patient was taken to the operating room, identified and placed on the operating table in the supine position. All contact areas were appropriately padded. IV antibiotics were provided by anesthesia team. A spinal anesthetic and adductor canal block had been provided in the holding area. Cruz catheter was placed in sterile fashion. Left thigh tourniquet was then placed and left lower extremity was then prepped and draped in the usual sterile fashion. The left leg was elevated, exsanguinated with Esmarch and tourniquet placed at 300 mmHg. An anterior approach to the left knee was then performed through a longitudinal incision centered over the patella. Sharp dissection was carried to the subcutaneous tissue down to the level of the extensor mechanism. A medial parapatellar arthrotomy incision was made. Some subperiosteal dissection was carried out medially. The fat pad resected from beneath the patellar tendon. Lateral patellofemoral ligament was released. Patella was everted and knee was flexed. The osteophytes were taken off the distal femur. The ACL and PCL were then released from distal femur and the tibia subluxated anteriorly. The external tibial alignment jig was then placed in the anterior face of the tibia and adjusted 14 mm medially. Proximal tibial cut was made to remove about 2 mm of bone from the most deficient aspect of the medial tibial plateau. Tibia was then sized to a size 67. Attention was then drawn to the femur. The distal femur was entered with sharp drill. Intramedullary canal was suctioned. A left 5-degree valgus cutting guide was placed. Distal femoral cutting block was pinned in place. Distal femoral cut was made to take an additional 3 mm of bone off the distal femur. Femur was then sized to a size 62.5. We did downsize this slightly. The AP cutting block was pinned parallel to the epicondylar axis, which was 4 degrees of external rotation. The anterior cut, anterior chamfer, posterior cut, and posterior chamfer cuts were made. Box cutting guide was placed and adjusted slightly lateral and the box cut was made. The knee was flexed. The remnants of the medial menisci were excised. The osteophytes were taken off the posterior aspect of the femur. Trial femoral component was placed. Tibial tray was pinned in maximum external rotation and the drill and stem punch were used to create defect in proximal tibia for the tibial tray. The knee was then trialled and the 10-mm insert fit most appropriately. Attention was then drawn to the patella. The patella was cleaned of all soft tissues. Patella thickness measured 19 mm in thickness and it was cut down to 11. We sized to a size 28 patella. Lug holes were drilled for a 28 patella. Lateral osteophyte was removed. Patella button was placed. Knee was taken through range of motion and patella tracked nicely with no thumbs test. Attention was then drawn toward placement of the permanent components. All trial components were removed. Bone plug was placed in the distal femur to limit blood loss. A double batch of Palacos G cement was mixed. A left size 62.5 posterior stabilized femoral component, a size 67 tibial tray, a 10-mm posterior stabilized polyethylene insert, and a 28 x 8 all poly patella were then cemented in place. Knee was brought out into full extension until cement hardened. A final cement check was then performed. Pericapsular tissues were injected with a total of 100 mL of a combination of 20 mL of Exparel, 30 mL of normal saline, and 50 mL of 0.25% Marcaine with epinephrine. The patient did receive 1 gram of tranexamic acid. The tourniquet was then let down for a tourniquet time 52 minutes. Hemostasis was assured with the use of electrocautery. The wound was once again irrigated. The extensor mechanism was then closed with a combination of #1 PDS suture and #1 Vicryl suture in a [id number] fashion. Extensor mechanism was checked and found to be intact. The subcutaneous tissues were then closed with #2 Dexon suture in a buried interrupted fashion. Skin was closed with skin vilma. Leg was then cleaned, dried and a sterile dressing of Xeroform, 4 x 4, sterile cast padding and Franklin bandage were applied. The patient then transferred to the recovery room in stable condition. The patient tolerated the procedure well with no complication. All needle and sponge counts were correct at the end of the operation. I attest to the content of the Intraoperative Record and any orders documented therein. Any exception s are noted below.
[2017-10-03] MEDS: CHECK SCOPOLAMINE PATCH PLACEMENT SCH ×2 (15:01→23:48)
[2017-10-03] MEDS: ACETAMINOPHEN 500 MG TAB PO SCH ×2 (15:40→23:48)
[2017-10-03] MEDS ORDERED: TRANEXAMIC ACID INJ 1,000 MG in SODIUM CHLORIDE 0.9% 100ML 100 ML IV ONE (16:30)
[2017-10-03] MEDS: CEFAZOLIN IV 2,000 MG in SYRINGE 0 ML IV SCH (16:47)
--- NOTE | 2017-10-03 16:59 | PROGRESS NOTE ---
DATE: 10/03/2017 SUBJECTIVE: A 51-year-old female postop from a left knee replacement. She is doing well. Pain is controlled. No chest pain or shortness of breath. Not feeling dizzy or lightheaded. No nausea. OBJECTIVE: VITAL SIGNS: Temperature 36.5. Vital signs stable. GENERAL: Reveals a healthy pleasant, middle-aged female. She is sitting up in bed and talking to her . She looks quite comfortable. LUNGS: Clear to auscultation. HEART: Regular rate and rhythm. ABDOMEN: Soft, nontender, nondistended. EXTREMITIES: Grossly neurovascularly intact except as follows: Examination of left leg reveals the dressing to be clean, dry and intact. Leg is well aligned. She can dorsiflex and plantarflex her foot appropriately. She is neurologically intact. IMAGING DATA: X-ray of the left knee from recovery room reviewed. Shows a left cemented posterior stabilized total knee arthroplasty. Components looked to be in good position. No signs of problems. ASSESSMENT: A 51-year-old female postop from a left knee replacement, doing well. Pain is controlled. No nausea. PLAN: 1. DVT prophylaxis including thigh-high TEDs, SCDs, and aspirin twice. 2. PT/OT. Weightbear as tolerated. Left total knee protocol. 3. Pain control, doing pretty well with current pain regimen. No nausea yet. 4. IV antibiotics x24 hours. 5. Disposition: Plan to discharge to home with some home health once adequately recovered.
[2017-10-03] MEDS: TRAMADOL HCL 50 MG TAB PO PRN (19:15)
[2017-10-03] MEDS: ASPIRIN 81 MG ECTAB PO SCH (20:22)
[2017-10-03] MEDS: DOCUSATE SODIUM 100 MG CAP PO SCH (20:22)
[2017-10-03] MEDS ORDERED: ACET-24 PO (20:53)
[2017-10-03] MEDS ORDERED: HYDR2TAB48 PO (20:53)
[2017-10-03] MEDS ORDERED: KETO10TA PO (20:53)
[2017-10-03] MEDS ORDERED: ASPEC81 PO (20:53)
[2017-10-03] MEDS ORDERED: ONDA4TAB65 PO (20:53)
[2017-10-03] MEDS ORDERED: FRRG PO (20:53)
--- NOTE | 2017-10-03 20:56 | Discharge Instructions ---
Discharge Instructions Date of Service Oct 03, 2017. Admission Reason for Admission: Left Knee Degenerative Joint Disease Discharge Discharge Diagnosis / Problem: Left Knee Replacement Discharge Goals Goal(s): Decrease discomfort, Improve function, Increase independence, Improve disease control, Therapeutic intervention Activity Recommendations Activity Limitations: per Instructions/Follow-up section Weightbearing Status: Left weightbearing . Instructions / Follow-Up Instructions / Follow-Up ACTIVITY RECOMMENDATIONS: Physical Therapy: * You will go to physical therapy three times each week for four to six weeks after your surgery in order to regain your knee range of motion and to retrain your knee to work properly. * It is just as important to make sure you are getting your knee perfectly straight as it is to regain your knee bend. * Taking a pain pill an hour before therapy can help you have a more productive and comfortable therapy session. Home Exercise: * You were shown a series of exercises (heel props, heel slides, etc.) in the hospital. Do these exercises three to four times each day including the exercises you were shown in physical therapy. Walking: * Get up and walk several times each day. For the first four weeks, try not to stand or walk for more than one hour at a time. If you do stand or walk for more than one hour, you will not hurt anything, but your knee and leg will likely swell. * As you feel comfortable, you may change from the walker or crutches to a cane and then to independent walking. MEDICATIONS: New Medicine: * You will likely be taking one or more of these medications: 1. Dilaudid - A quick and shorter-acting pain medication. Take one to two tablets every four to six hours to lessen your pain. 2. Iron Sulfate - Take two times each day for the month after surgery to help you replace the blood lost during surgery. 3. Aspirin - Thins your blood to lessen the chance of forming a blood clot. * The most common side effects of pain medicine and iron are nausea and constipation. If nausea or constipation is too much of a problem or if you have any questions about your new medicines or doses, call [facility] at [phone]. We will try to help you manage these issues. VERY IMPORTANT TO READ AND REVIEW" Pain: * The immediate post-operative period after knee replacement surgery is often quite painful. * You are given a prescription for pain medicine. You should take it, as directed, when you need it, especially before physical therapy and before going to bed. Pain that interferes with sleep is very common and can last several months. * You will likely need pain medicine for the first four to six weeks. It will not stop all of the pain. The pain will lessen and as you feel better, you may change to milder pain medicine such as Tylenol. * The most common side effects of pain medicine are nausea and constipation, so don't take more than you need. SPECIAL CARE INSTRUCTIONS: TEDs/Elastic Stockings: * The white elastic stockings help limit swelling and prevent blood clots from forming in your legs. The more you wear them, the more they work. * Wear them for six weeks after knee replacement surgery and four weeks after partial knee replacement. Prevention of Infection: * Take antibiotics one hour before any dental cleaning, dental work, urological procedure, gastrointestinal procedure or any invasive surgery in order to prevent your new joint from getting infected. * You may get the antibiotics from the doctor performing the procedure or you may call our office at before and we will call in a prescription to the pharmacy of your choice. Things to Watch For: * Drainage from the incision site that occurs more than one week after your surgery. * Severely increased knee/leg pain or swelling. * Increased redness at the incision site. * Fever above 102 degrees Fahrenheit. * Unusual chest pain or shortness of breath. * Unusual pain or burning with urination. Call [facility] at with any of the above problems or if you have any questions about your medicines or recovery. FOLLOW UP VISIT: Make an appointment to see your doctor for approximately two weeks after surgery for a progress check and staple removal by calling the office at . Current Hospital Diet Patient's current hospital diet: Regular Diet Discharge Diet Recommended Diet: Regular Diet Procedures Procedures Performed: Left Total Knee Arthroplasty Cemented Pending Studies Studies pending at discharge: no Medical Emergencies . Who to Call and When: Medical Emergencies: If at any time you feel your situation is an emergency, please call [phone] immediately. . Non-Emergent Contact Non-Emergency issues call your: Surgeon . "Provider Documentation" section prepared by Raymond Mckeon. .
[2017-10-03] MEDS ORDERED: SENNA 8.6 MG TAB PO SCH (21:00)
[2017-10-04] MEDS: CEFAZOLIN IV 2,000 MG in SYRINGE 0 ML IV SCH (01:18)
[2017-10-04 02:57] VITALS: BP 97/61; PULSE 76; TEMP 36.8; O2SAT 97
[2017-10-04] MEDS: D5W AND 1/2NSS + 20MEQ KCL 1,000 ML IV SCH (05:21)
[2017-10-04] MEDS: KETOROLAC TROMETHAMINE 30 MG/ML VIAL IV. SCH (05:22)
[2017-10-04 07:25] LABS: HEMATOCRIT 30.7 % (37-47); HEMOGLOBIN 10.5 g/dL (12.0-16.0); MEAN CELL VOLUME 92.2 fL (80-100); MEAN CORPUSCULAR HEMOGLOBIN 31.5 pg (25-34); MEAN CORPUSCULAR HGB CONC 34.2 g/dl (32-36); MEAN PLATELET VOLUME 10.4 fL (7.4-10.4); PLATELET COUNT 183 K/uL (130-400); RED CELL DISTRIBUTION WIDTH CV 12.9 % (11.5-14.5); RED CELL DISTRIBUTION WIDTH SD 43.5 fL (36.4-46.3)
[2017-10-04] MEDS ORDERED: DEXAMETHASONE INJ 10 MG in SYRINGE 0 ML IV ONE (07:30)
--- NOTE | 2017-10-04 07:37 | PROGRESS NOTE ---
DATE: 10/04/2017 SUBJECTIVE: A 51-year-old white female postop day 1 from a left knee replacement. She is doing pretty well. Pain has been controlled. No chest pain or shortness of breath. Not feeling dizzy or lightheaded. OBJECTIVE: VITAL SIGNS: Temperature 36.8. Vital signs stable. GENERAL: Reveals a pleasant, middle-aged female. She is sitting up in bed, looks pretty comfortable. EXTREMITIES: Examination of the left leg reveals the leg to be well aligned. Dressing is clean, dry and intact. She can dorsiflex and plantarflex her foot appropriately. She is neurologically intact. LABORATORY DATA: Labs are pending. ASSESSMENT: A 51-year-old white female postop day 1 from a left knee replacement, doing pretty well. Pain is controlled. She is neurologically intact. PLAN: 1. DVT prophylaxis including thigh-high TEDs, SCDs, and aspirin twice a day. 2. PT/OT. Weight bear as tolerated. Left total knee protocol. 3. Pain control, doing pretty well with current pain regimen. 4. Disposition: Plan to discharge to home with some home health if she does okay in therapy and her pain is controlled.
[2017-10-04 07:43] LABS: CALCIUM 8.3 mg/dl (8.5-10.1); CREATININE 0.78 mg/dl (0.60-1.20)
[2017-10-04 08:01] VITALS: BP 110/74; PULSE 60; TEMP 36.7; O2SAT 100
[2017-10-04] MEDS: DOCUSATE SODIUM 100 MG CAP PO SCH (08:21)
[2017-10-04] MEDS: ASPIRIN 81 MG ECTAB PO SCH (08:22)
[2017-10-04] MEDS: ACETAMINOPHEN 500 MG TAB PO SCH (08:23)
[2017-10-04 08:33] VITALS: O2SAT 100
[2017-10-04] MEDS: CHECK SCOPOLAMINE PATCH PLACEMENT SCH (08:48)
[2017-10-04] MEDS: FERROUS GLUCONATE 324 MG TAB PO SCH (08:49)
[2017-10-04] MEDS: TRAMADOL HCL 50 MG TAB PO PRN (08:52)
[2017-10-04] MEDS ORDERED: CALCIUM 600MG + VIT D 400 IU TAB PO SCH (09:00)
[2017-10-04] MEDS ORDERED: MULTIVITAMIN TAB PO SCH (09:00)
[2017-10-04] MEDS ORDERED: LISINOPRIL 2.5 MG TAB PO SCH (09:00)
[2017-10-04] MEDS ORDERED: CEROVITE ADV FORMULA TAB PO SCH (09:00)
[2017-10-04] MEDS ORDERED: PANTOprazole SOD 40 MG TAB PO SCH (09:00)
[2017-10-04 10:03] VITALS: BP 110/74; PULSE 60; TEMP 36.7; O2SAT 100
--- NOTE | 2017-10-05 15:27 | Anesthesiology Progress Note ---
Anesthesia Post Op Note Date & Time Oct 05, 2017 at 15:26 Vital Signs Pain Intensity: 3.0 Notes Mental Status: alert / awake / arousable, participated in evaluation Pt Amnestic to Procedure: Yes Nausea / Vomiting: adequately controlled Pain: adequately controlled Airway Patency, RR, SpO2: stable & adequate BP & HR: stable & adequate Hydration State: stable & adequate Neuraxial Anesthesia: sensory block resolved Anesthetic Complications: no major complications apparent This post- op visit was made on October 04, 2017@ 07:30 AM
--- NOTE | 2017-10-11 09:13 | DISCHARGE SUMMARY ---
ADMITTING PHYSICIAN AND SURGEON: Dr. Mckeon. ADMITTING DIAGNOSIS: Left knee degenerative joint disease. SURGERY PERFORMED: Left total knee arthroplasty. SECONDARY DIAGNOSES: Arthritis and hypertension. CONSULTS: None obtained. HISTORY AND PHYSICAL EXAMINATION: Well documented in the patient's chart. HOSPITAL COURSE: The patient has been on 10/03/2017 underwent total knee arthroplasty, tolerated the procedure well. There were no complications. She was transferred to the PACU postoperatively and later to the orthopedic floor for further care. She was given Ancef for antibiotic prophylaxis, LA stockings, SCDs and aspirin for DVT prophylaxis. Hemoglobin, hematocrit and vital signs were monitored during hospital stay and remained stable. She developed some postoperative anemia, did not require any blood transfusions. There were no complications. By postoperative day 1, she was discharged home, set up with home health services. She was given printed discharge instructions including new prescriptions for extra strength Tylenol, aspirin, iron supplement, hydromorphone, Zofran. Continue her home medications, continue physical therapy, weightbearing as tolerated, LA stockings. Follow up in 10-12 days or sooner if any problems or concerns.
== END 2017-10-04 11:25 | disposition home health service (06) | DRG 470 ==
LOC: C.ACU 06:33 → C.3E 10:36 → ENRESERV 11:02
PROVIDERS: ADMIT Orthopaedic Surgery Sports Medicine; ATTEND Orthopaedic Surgery Sports Medicine
PROC: 0SRD0J9 Replacement of Left Knee Joint with Synthetic Substitute, Cemented, Open Approach (ICD-10-PCS; principal; 2017-10-03 09:00)
DX: M17.12 Unilateral primary osteoarthritis, left knee (principal); I10 Essential (primary) hypertension; Z96.651 Presence of right artificial knee joint